=== PATIENT | female | born 1950 | race Two or more races ===

== ENCOUNTER 2025-04-18 09:42 | Emergency (ER) | payer OTHER ==
[~2025-04-18] VITALS: Ht 162.6 cm; Wt 70.3 kg
[2025-04-18] MEDS ORDERED: ATORVASTATIN CA10 MG PO (10:17)
[2025-04-18] MEDS ORDERED: TOPROL XL25 M1 PO (10:18)
[2025-04-18] MEDS ORDERED: TRAMADOL HCL E100 M1 PO (12:34)
== END 2025-04-18 15:06 | disposition home or self-care (01) ==
LOC: ER 09:43
DX: S92.351A Displaced fracture of fifth metatarsal bone, right foot, initial encounter for closed fracture (principal); W19.XXXA Unspecified fall, initial encounter; Y93.89 Activity, other specified; Y92.89 Other specified places as the place of occurrence of the external cause; Y99.8 Other external cause status; I10 Essential (primary) hypertension

== ENCOUNTER 2025-04-22 10:29 | Emergency (ER) | payer OTHER ==
[~2025-04-22] VITALS: Ht 162.6 cm; Wt 69.9 kg
[~2025-04-22 10:29] MED LIST: ATORVASTATIN CA10 MG PO; TOPROL XL25 M1 PO; TRAMADOL HCL E100 M1 PO
[2025-04-22 10:33] VITALS: BP 186/115; O2SAT 97
[2025-04-22] MEDS ORDERED: MORPHINE SULFATE 4 MG/ML CARTRIDGE IV ONE ×2 (12:00→17:45)
[2025-04-22 17:35] LABS: BASO % 0.2 % (0.1-1.2); EOS # 0.05 (0.04-0.54); EOS % 0.4 % (0.7-7.0); LYMPH # 1.78 (1.18-3.74); LYMPH % 13.3 % (19.3-53.1); MEAN PLATELET VOLUME 9.40 fl (9.4-12.4); MONO # 1.42 (0.24-0.82); MONO % 10.6 % (4.7-12.5); NEUT # 10.03 (1.56-6.13); NEUT % 75.1 % (34.0-71.1); RED CELL DISTRIBUTION WIDTH 13.7 % (11.6-14.4)
[2025-04-22 17:46] LABS: INR 1.09
[2025-04-22 17:51] LABS: BUN CREA RATIO 14.0 (7.0-25.0); CREATININE SERUM 0.51 mg/dL (0.55-1.02); GFR 117.25; GLUCOSE FASTING 109.0 mg/dL (65-100); OSMOLALITY SERUM 278.0 MOSM/KG (275-295)
[2025-04-22] MEDS ORDERED: DEXAMETHASONE SODIUM PHOSPHATE 4 MG/ML VIAL IM STA (18:34)
[2025-04-22] MEDS ORDERED: TRAM1TAB98 PO (19:27)
[2025-04-22 19:33] LABS: URINE APPEARANCE Clear; URINE BILIRRUBIN Negative (NEGATIVE); URINE BLOOD Negative; URINE COLOR Yellow; URINE GLUCOSE Negative (NEGATIVE); URINE KETONE 15 (NEGATIVE); URINE LEUKOCYTE Negative; URINE NITRATE Negative; URINE PROTEIN Trace (NEGATIVE); URINE UROBILINOGEN 0.2 E.U./dl
[2025-04-22] MEDS ORDERED: DEXAMETHASONE SODIUM PHOSPHATE 4 MG/ML VIAL ONE ×2 (19:33→19:40)
[2025-04-22 19:35] LABS: URINE BACTERIA 1004.1 uL (0.0-1933); URINE EPITHELIAL CELLS 9.2 uL (0.0-38.8); URINE RBC 16.1 uL (0.0-20.8); URINE WBC 15.9 uL (0.0-23.2)
[2025-04-22 19:38] LABS: URINE CAST 0.00 uL (0.0-1.40)
== END 2025-04-22 20:10 | disposition home or self-care (01) ==
LOC: ER 10:29
PROVIDERS: General Practice
DX: S79.812A Other specified injuries of left hip, initial encounter (principal); W18.39XA Other fall on same level, initial encounter; Y93.89 Activity, other specified; Y92.89 Other specified places as the place of occurrence of the external cause; M54.32 Sciatica, left side; I10 Essential (primary) hypertension; S92.351A Displaced fracture of fifth metatarsal bone, right foot, initial encounter for closed fracture
CPT/HCPCS: 72148

== ENCOUNTER 2025-04-30 09:57 | Outpatient (CLI) | payer OTHER ==
[~2025-04-30 09:57] MED LIST changes: +TRAM1TAB98 PO
== END 2025-04-30 10:15 | disposition home or self-care (01) ==
LOC: RAD 09:57
PROVIDERS: ATTEND Orthopaedic Surgery
DX: S92.351A Displaced fracture of fifth metatarsal bone, right foot, initial encounter for closed fracture (principal); X58.XXXA Exposure to other specified factors, initial encounter; Y93.9 Activity, unspecified; Y92.9 Unspecified place or not applicable; Y99.9 Unspecified external cause status